=== PATIENT | male | born 1970 | race Caucasian/White ===

== ENCOUNTER 2017-08-13 17:33 | Inpatient (IN) | payer OTHER ==
[~2017-08-13] VITALS: Ht 182.9 cm; Wt 154.5 kg
[2017-08-13 17:34] VITALS: BP 179/78; PULSE 106; RESP 24; TEMP 97.7; O2SAT 98
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
[2017-08-13] MEDS ORDERED: LIDOCAINE 1%/EPINEPHrine 1:100,000 SOLN 20 ML VIAL INFIL ONE (18:00)
[2017-08-13] MEDS ORDERED: MORPHINE SULFATE 4 MG/ML INJ IV PUSH ONE (18:00)
[2017-08-13] MEDS ORDERED: LIDOCAINE HCL 2% 20 ML VIAL INFIL ONE (18:00)
[2017-08-13] MEDS ORDERED: ACETAMINOPHEN/HYDROcodone 325 MG/5 MG TAB PO PRN (18:15)
[2017-08-13] MEDS ORDERED: NURSING INFORMATION XX SCH (18:15)
[2017-08-13] MEDS ORDERED: CHLORHEXIDINE GLUCONATE 2 % 1 PACK (2 CLOTHS) TOP PRN (18:15)
[2017-08-13] MEDS ORDERED: NALOXONE HCL 0.4 MG/ML AMP IV PUSH PRN (18:15)
[2017-08-13] MEDS ORDERED: ONDANSETRON ODT 4 MG TAB PO PRN (19:00)
[2017-08-13 19:05] VITALS: BP 148/77; PULSE 110; RESP 18; O2SAT 95
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
--- NOTE | 2017-08-13 19:50 | PD ---
Physical Exam Time Seen by Provider: 19:49 Data Data Last Documented VS Vital Signs Date Time Temp Pulse Resp B/P (MAP) Pulse Ox O2 Delivery O2 Flow Rate FiO2 08/13/17 17:44 95 08/13/17 17:34 97.7 106 24 179/78 (111) Orders Orders Consult Anya Gts (08/13/17 ) Foot, Limited (2vws) (08/13/17 ) Ankle, Limited (Ap&Lat) (08/13/17 ) Knee, Ltd (1 Or 2vws) (08/13/17 ) Morphine Inj (Morphine Inj) (08/13/17 18:00) Lidocai-Epi 1%-1:100,000 Inj (Xylocaine- (08/13/17 18:00) Shoulder, Limited(2vws) (08/13/17 ) Lidocaine 2% Inj (Xylocaine 2% Inj) (08/13/17 18:00) Admit To Inpatient (08/13/17 ) Vital Signs (Adult) FABY.QSHIFT (08/13/17 18:06) Intake + Output FABY.Q8H (08/13/17 18:06) Resp Pulse Oximetry (08/13/17 ) Neuro Checks FABY.Q1H (08/13/17 18:06) Activity Bed Rest (08/13/17 18:06) Diet Npo (08/13/17 Dinner) Resp Incentive Spirometry (08/13/17 ) Instruction (08/13/17 18:06) Complete Blood Count With Diff (08/14/17 06:00) Basic Metabolic Panel (Bmp) (08/14/17 06:00) Chest, Single Ap (08/14/17 ) Sodium Chlor 0.9% 1000 Ml Inj (Ns 1000 M (08/13/17 20:00) Sodium Chloride 0.9% Flush (Ns Flush) (08/13/17 18:15) Acetamin-Hydrocod 325-5 Mg ([place] 5-325 (08/13/17 18:15) Acetamin-Hydrocod 325-5 Mg ([place] 5-325 (08/13/17 18:15) Pantoprazole Inj (Protonix Inj) (08/13/17 20:00) Bacitracin Oint (Baciguent Oint) (08/13/17 21:00) Consult Pt Eval & Treat (08/13/17 18:06) Docusate Sodium (Colace) (08/13/17 21:00) Consult Orthopedic (08/13/17 ) ^ Initiate Protocol (08/13/17 18:06) Instruction (08/13/17 18:06) Nursing Information ([facility] Nursing Inform (08/13/17 18:15) Chlorhexidine 2% Cloth (Chlorhexidine 2% (08/14/17 04:00) Chlorhexidine 2% Cloth (Chlorhexidine 2% (08/13/17 18:15) Mrsa Pcr Surveillance (08/13/17 18:06) ^ Monitor (08/13/17 18:) Notify Dr: Blood Pressure (08/13/17 18:) Notify Dr: Respiratory Rate (08/13/17 18:06) Notify Dr: Other (08/13/17 18:06) Naloxone Inj (Narcan Inj) (08/13/17 18:15) Morphine 1 Mg/Ml Almond Pan Finisher (Morphine 1 Mg/Ml P (08/13/17 19:00) Almond Pan Finisher Total Dose - Morphine (08/13/17 22:00) Inpatient Certification (08/13/17 ) Admit Order (Ed Use Only) (08/13/17 18:10) Ondansetron Odt (Zofran Odt) (08/13/17 19:00) MDM Medical Record Reviewed: Yes Supervised Visit with HAILEE: No Procedures Procedure Narrative LACERATION LOCATION: Upper lip LENGTH: 3 cm through and through NUMBER OF STITCHES/KEYON: 7 chromic gut, 5 Ethilon REPAIR: The area of the laceration was prepped with Betadine and sterilely draped. The laceration was infiltrated with 1% lidocaine without epinephrine. The wound was copiously irrigated and explored without evidence of foreign body , tendon injury or neurovascular injury. The wound was closed using 5-0 chromic gut and 5-0 Ethilon suture. This was a double layer repair. A sterile dressing was applied. The patient was advised to keep the dressing clean and dry. Patient tolerated the procedure well. LACERATION LOCATION: Left eyebrow LENGTH: 2 cm NUMBER OF STITCHES/KEYON: 5 sutures REPAIR: The area of the laceration was prepped with Betadine and sterilely draped. The laceration was infiltrated with 1% lidocaine without epinephrine. The wound was copiously irrigated and explored without evidence of foreign body , tendon injury or neurovascular injury. The wound was closed using 5-0 Ethilon suture. This was a single layer repair. A sterile dressing was applied. The patient was advised to keep the dressing clean and dry. Patient tolerated the procedure well. Diagnosis Primary Impression: Right femoral fracture Qualified Codes: S72.341A - Displaced spiral fracture of shaft of right femur , initial encounter for closed fracture Additional Impression: Lip laceration Qualified Codes: S01.511A - Laceration without foreign body of lip, initial encounter Scripts No Active Prescriptions or Reported Meds Condition: Stable Zulema Trevino Aug 13, 2017 19:50
[2017-08-13 20:00] VITALS: BP 166/83; PULSE 75; RESP 18; TEMP 98.5; O2SAT 98
[2017-08-13] MEDS: RESP: ALBUTEROL 2.5 MG/3 ML NEB (SCH) NEB ×2 (20:00→22:27)
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
[2017-08-13] MEDS: SODIUM CHLOR 0.9% 1000 ML INJ 1,000 ML IV SCH (20:55)
[2017-08-13] MEDS: MORPHINE SULFATE 30 MG/30 ML PCA IV SCH (20:56)
[2017-08-13] MEDS: PANTOPRAZOLE SODIUM 40 MG VIAL IVP SCH (20:57)
[2017-08-13] MEDS: ACETAMINOPHEN/HYDROcodone 325 MG/5 MG TAB PO PRN (20:57)
[2017-08-13] MEDS ORDERED: DOCUSATE SODIUM 100 MG CAP PO SCH (21:00)
[2017-08-13] MEDS: PCA - TOTAL MG MORPHINE DELIVERED PER SHIFT SCH (22:00)
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
[2017-08-13 22:27] VITALS: O2SAT 97
[2017-08-13] MEDS: BACITRACIN TOP OINT 15 GM TUBE TOP SCH (23:17)
[2017-08-14] VITALS (11 sets, daily range): BP systolic 119–169; BP diastolic 67–81; PULSE 79–102; RESP 18–22; TEMP 98–98.7; O2SAT 92–99
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
[2017-08-14] MEDS: RESP: ALBUTEROL 2.5 MG/3 ML NEB (SCH) NEB ×6 (01:08→23:47)
[2017-08-14] MEDS: SODIUM CHLOR 0.9% 1000 ML INJ 1,000 ML IV SCH ×2 (02:40→14:40)
[2017-08-14] MEDS ORDERED: CHLORHEXIDINE GLUCONATE 2 % 1 PACK (2 CLOTHS) TOPICAL PRN (03:30)
[2017-08-14] MEDS ORDERED: LACTATED RINGER'S 1000 ML IV PRN (03:30)
[2017-08-14] MEDS ORDERED: METOPROLOL TARTRATE 25 MG TAB PO PRN (03:30)
[2017-08-14] MEDS ORDERED: POVIDONE IODINE 5% (ANTISEPSIS KIT) 4 APPLICATIONS EACH NARE PRN (03:30)
[2017-08-14] MEDS ORDERED: SODIUM CHLORID 0.9% 500 ML IV PRN (03:30)
[2017-08-14] MEDS ORDERED: CHLORHEXIDINE GLUCONATE 2 % 1 PACK (2 CLOTHS) TOP SCH (04:00)
[2017-08-14] MEDS: MORPHINE SULFATE 30 MG/30 ML PCA IV SCH ×2 (04:41→14:39)
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
[2017-08-14] MEDS: PCA - TOTAL MG MORPHINE DELIVERED PER SHIFT SCH ×3 (06:00→22:00)
[2017-08-14 06:24] LABS: AUTOMATED NEUTROPHIL # 8.7 TH/MM3 (1.8-7.7); BASOPHIL % 0.2 % (0.0-2.0); EOSINOPHIL # 0.6 TH/MM3 (0-0.4); EOSINOPHIL % 4.7 % (0.0-4.0); HEMOGLOBIN 12.1 GM/DL (13.0-17.0); LYMPH % 13.3 % (9.0-44.0); LYMPHOCYTE # 1.6 TH/MM3 (1.0-4.8); MEAN CELL VOLUME 85.9 FL (80.0-100.0); MEAN CORPUSCULAR HGB CONC 32.6 % (32.0-36.0); MEAN PLATELET VOLUME 8.4 FL (7.0-11.0); MONO % 9.4 % (0.0-8.0); MONOCYTE # 1.1 TH/MM3 (0-0.9); NEUT % 72.4 % (16.0-70.0); PLATELET COUNT 218 TH/MM3 (150-450); RED BLOOD COUNT 4.31 MIL/MM3 (4.50-5.90); RED CELL DISTRIBUTION WIDTH 15.7 % (11.6-17.2)
[2017-08-14 07:29] LABS: BICARBONATE 28.9 MEQ/L (21.0-32.0); CALCIUM 8.1 MG/DL (8.5-10.1); CREATININE 0.95 MG/DL (0.60-1.30)
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
[2017-08-14] MEDS ORDERED: GENTAMICIN SULFATE 80 MG/2 ML VIAL ONE (08:02)
[2017-08-14] MEDS ORDERED: VANCOMYCIN HCL 1000 MG VIAL ONE (08:02)
[2017-08-14] MEDS ORDERED: ceFAZolin INJ 1,000 MG VIAL ONE (08:02)
[2017-08-14] MEDS ORDERED: SODIUM CHLOR 0.9% 250 ML INJ 250 ML ONE (08:03)
[2017-08-14] MEDS ORDERED: ACETAMINOPHEN 1000 MG/100 ML 100 ML IV ONE (08:07)
[2017-08-14] MEDS ORDERED: HYDROmorphone HCL PF 2 MG/ML VIAL ONE (08:08)
[2017-08-14] MEDS ORDERED: KETAMINE HCL 50 MG/5 ML SYRINGE ONE ×2 (08:30)
[2017-08-14] MEDS: BACITRACIN TOP OINT 15 GM TUBE TOP SCH ×2 (09:00→21:00)
--- NOTE | 2017-08-14 10:05 | PD.OP ---
cc: Neri Harris MD Operative Report Date of Surgery: Aug 14, 2017 Preoperative Diagnosis: Displaced right femur fracture, comminuted right calcaneus fracture Postoperative Diagnosis: Procedure: Right femur reduction and intramedullary fixation Anesthesia: General Surgeon: Neri Harris Freight Tallier(s): Arturo Cervantes PA-C The surgical procedure was assisted by my physician assistant signal maintainer. My P.A. presence was necessary throughout this case for the manipulation and positioning of the surgical extremity. My P.A. was assisting me throughout the duration of this procedure. The skill set of a physician assistant signal maintainer was medically necessary to complete this procedure. During the surgical case the surgical training specialist was working at the back table and the physician assistant signal maintainer was directly assisting me. Operation and Findings: Implants used: Synthes Plan of activity: Nonweightbearing right leg Patient was seen and evaluated preoperatively. The patient has significant leg pain from right femur shaft fracture and right calcaneus fracture. The risk and benefits of surgery were discussed in depth with the patient to include bleeding, infection, nonunion, malunion, need for hip replacement, painful hardware, as well as medical competitions including blood clots, stroke, heart attack, and . Informed consent was obtained. Operative site was marked. Patient was brought to the operating room and placed on [place] table. IV sedation was administered by anesthesiologist. Timeout procedure was performed. Hip and leg were prepped with alcohol followed by Hibiclens and draped in the usual sterile fashion. IV antibiotics were given prior to incision. Procedure began with reduction of fracture. Traction was applied. The leg was manipulated to achieve reduction. Excellent reduction was achieved. Fluoroscopy was used to confirm reduction. A two inch incision was made over the anterior knee. A medial arthrotomy was created. Guidepin was placed into the distal femur and advanced into the femoral canal. Fluoroscopy confirmed appropriate guidepin placement. A opening reamer was placed over the guidepin. A long ball tipped guide pin was now placed down the femoral canal into the center of the proximal femur. The nail length was now measured. Fluoroscopy confirmed appropriate guidepin placement. Flexible reamers were now passed over the guidepin to ream the intramedullary canal. The Synthes nail was attached to the insertion handle. Nail was now placed over the guidepin into the femoral canal. Fluoroscopy confirmed appropriate nail placement. A small percutaneous incisions were made over the lateral thigh. Cannulas were placed through the insertion handle down to the femur. Using the insertion handle as a guide the distal interlocking screw holes were predrilled and screw lengths were measured. Appropriate length screws was now placed. Next, using perfect cowlitz technique one proximal interlocking screw was placed. Screw holes were predrilled and screw lengths were measured. Final fluoroscopy revealed well aligned fracture with well-placed hardware. Incision was closed with 0 Vicryl, 3-0 Vicryl and claire. Sterile dressings were applied. Patient was placed into a well molded well-padded splint for his right calcaneus fracture. Patient was awakened and transferred to recovery room. Neri Harris MD Aug 14, 2017 10:05
[2017-08-14] MEDS ORDERED: ERGOCALCIFEROL (VIT D2) 50,000 UNIT CAP PO ONE (10:15)
[2017-08-14] MEDS ORDERED: ONDANSETRON ODT 4 MG TAB SL PRN (10:15)
[2017-08-14] MEDS ORDERED: diphenhydrAMINE HCL 25 MG CAP PO PRN (10:15)
[2017-08-14] MEDS ORDERED: SENNOSIDES 8.6 MG TAB PO PRN (10:30)
[2017-08-14] MEDS ORDERED: LACTULOSE SYRUP 20 GM/30 ML CUP PO PRN (10:30)
[2017-08-14] MEDS ORDERED: BISACODYL 10 MG SUPP RECTAL PRN (10:30)
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
[2017-08-14] MEDS ORDERED: NALOXONE HCL 0.4 MG/ML AMP ONE (10:52)
[2017-08-14] MEDS ORDERED: SUGAMMADEX SODIUM 200 MG/2 ML VIAL IV PUSH ONE (10:52)
--- NOTE | 2017-08-14 10:59 | RADRPT ---
EXAM DATE: 08/14/2017 10:51 AM EDT AGE/SEX: 46 years / Male INDICATIONS: ORIF RT FEMUR CLINICAL DATA: This is the patient's initial encounter. Patient reports that signs and symptoms have been present for 1 day and indicates a pain score of Nonresponsive. MEDICAL/SURGICAL HISTORY: None. None. COMPARISON: No prior exams available for comparison. FINDINGS: Spot intraoperative fluoroscopic views of the right femur demonstrate retrograde intramedullary kiki p lacement across the mid femoral fracture with 2 distal interlocking screws and one proximal interlock ing screw. CONCLUSION: Postsurgical changes. Electronically signed by: Al Whitman MD 08/14/2017 10:58 AM EDT
[2017-08-14] MEDS ORDERED: DO NOT ADM ANY ANTICOAGULANT DRUGS PRN (11:01)
[2017-08-14] MEDS ORDERED: MIDAZOLAM HCL 2 MG/2 ML VIAL ONE (11:10)
[2017-08-14] MEDS ORDERED: GLYCOPYRROLATE 1 MG/5 ML SYRINGE IV PUSH ONE (12:00)
[2017-08-14] MEDS ORDERED: DEXAMETHASONE SOD PHOS 4 MG/ML VIAL IV ONE (12:00)
[2017-08-14] MEDS ORDERED: PROPOFOL 200 MG/20 ML AMP IV ONE (12:00)
[2017-08-14] MEDS ORDERED: ROCURONIUM INJ 50 MG/5 ML SYRINGE IV PUSH ONE (12:00)
[2017-08-14] MEDS ORDERED: ONDANSETRON HCL 4 MG/2 ML VIAL IV PUSH ONE (12:00)
[2017-08-14] MEDS ORDERED: PHENYLEPH/NS 1000 MCG/10 ML SYR IV ONE (12:00)
[2017-08-14] MEDS ORDERED: SUCCINYLCHOLINE CHLORIDE 100 MG/5 ML SYRINGE IV PUSH ONE (12:00)
[2017-08-14] MEDS ORDERED: LACTATED RINGER'S 1000 ML INJ 1,000 ML IV ONE (12:00)
[2017-08-14] MEDS ORDERED: LIDOCAINE HCL 1% PF 5 ML SYRINGE OTHER ONE (12:00)
[2017-08-14] MEDS ORDERED: SODIUM CHLOR 0.9% 250 ML INJ 250 ML IV ONE (12:00)
[2017-08-14] MEDS ORDERED: NEOSTIGMINE 5 MG/5 ML SYRINGE IV PUSH ONE (12:00)
[2017-08-14] MEDS ORDERED: PERI PO (14:21)
[2017-08-14] MEDS: CALCIUM/VITAMIN D 250 MG/125 U TAB PO SCH ×2 (14:21→17:16)
[2017-08-14] MEDS: MAGNESIUM HYDROXIDE SUSP 30 ML CUP PO SCH ×2 (14:21→23:00)
[2017-08-14] MEDS ORDERED: MAGN30S PO (14:21)
[2017-08-14] MEDS ORDERED: ENALAPRILAT 1.25 MG/ML VIAL IV PUSH PRN (14:30)
[2017-08-14] MEDS: ceFAZolin 2 GM PREMIX 50 ML IV SCH ×2 (17:15→21:55)
[2017-08-14] MEDS: PANTOPRAZOLE SODIUM 40 MG VIAL IVP SCH (22:09)
[2017-08-14] MEDS: DOCUSATE SODIUM 50 MG/SENNA 8.6 MG TAB PO SCH (22:09)
[2017-08-15] VITALS (8 sets, daily range): BP systolic 117–153; BP diastolic 60–81; PULSE 80–111; RESP 16–22; TEMP 97.7–99.3; O2SAT 94–96
[2017-08-15] MEDS: RESP: ALBUTEROL 2.5 MG/3 ML NEB (SCH) NEB ×6 (02:57→23:47)
[2017-08-15] MEDS: ceFAZolin 2 GM PREMIX 50 ML IV SCH (03:00)
[2017-08-15 04:43] LABS: BASOPHIL # 0.1 TH/MM3 (0-0.2); BASOPHIL % 0.5 % (0.0-2.0); EOSINOPHIL # 0.3 TH/MM3 (0-0.4); EOSINOPHIL % 1.6 % (0.0-4.0); HEMATOCRIT 32.9 % (39.0-51.0); HEMOGLOBIN 10.5 GM/DL (13.0-17.0); LYMPH % 10.5 % (9.0-44.0); LYMPHOCYTE # 1.7 TH/MM3 (1.0-4.8); MEAN CORPUSCULAR HEMOGLOBIN 27.8 PG (27.0-34.0); MEAN CORPUSCULAR HGB CONC 31.9 % (32.0-36.0); MEAN PLATELET VOLUME 9.2 FL (7.0-11.0); MONOCYTE # 1.5 TH/MM3 (0-0.9); NEUT % 78.4 % (16.0-70.0); PLATELET COUNT 114 TH/MM3 (150-450); RED BLOOD COUNT 3.78 MIL/MM3 (4.50-5.90); RED CELL DISTRIBUTION WIDTH 15.7 % (11.6-17.2); WHITE BLOOD COUNT 16.6 TH/MM3 (4.0-11.0)
[2017-08-15 05:01] LABS: BICARBONATE 26.6 MEQ/L (21.0-32.0); CREATININE 0.94 MG/DL (0.60-1.30)
[2017-08-15] MEDS: PCA - TOTAL MG MORPHINE DELIVERED PER SHIFT SCH (06:00)
--- NOTE | 2017-08-15 06:40 | PD.ORT.PN ---
Subjective Subjective Remarks POd 1 s/p IMN right femur s/p rigiht calcaneus fx reports pain in leg and pain in left shoulder. Objective Vitals Vital Signs Date Time Temp Pulse Resp B/P (MAP) Pulse Ox O2 Delivery O2 Flow Rate FiO2 08/15/17 04:00 98.6 111 22 142/71 (94) 95 08/15/17 00:00 99.3 104 20 117/73 (88) 94 08/14/17 23:46 94 Nasal Cannula 3.00 08/14/17 22:27 98 Nasal Cannula 3.00 08/14/17 22:00 17 08/14/17 20:00 98.7 102 22 119/81 (94) 98 08/14/17 16:35 92 Nasal Cannula 4.00 08/14/17 16:00 98.0 87 20 147/67 (93) 95 08/14/17 13:00 98.0 79 20 169/79 (109) 92 08/14/17 12:15 98.1 101 20 169/86 (113) 94 Nasal Cannula 4 08/14/17 12:00 104 20 181/84 (116) 93 Nasal Cannula 4 08/14/17 11:45 103 20 178/86 (116) 96 Nasal Cannula 4 08/14/17 11:30 100 20 165/88 (113) 96 Nasal Cannula 4 08/14/17 11:15 99 20 159/94 (115) 100 40 08/14/17 11:00 99 35 08/14/17 11:00 105 20 166/88 (114) 99 40 08/14/17 10:57 98.3 109 20 170/91 (117) 95 45 08/14/17 08:00 98.6 101 18 136/67 (90) 95 I/O 08/14/17 08/14/17 08/14/17 08/15/17 08/15/17 08/15/17 07:00 15:00 23:00 07:00 15:00 23:00 Intake Total 706 ml 1300 ml 2 ml 720 ml Output Total 1400 ml 75 ml 1500 ml 1050 ml Balance -694 ml 1225 ml -1498 ml -330 ml Intake Oral 720 ml IV Total 706 ml 2 ml Other 1300 ml Output Urine Total 1400 ml 1500 ml 1050 ml Estimated Blood Loss 75 ml Bladder Scan Volume Amount 999 ml # Bowel Movements 0 Result Diagram: 6/10/18 0345 08/15/17 034 Objective Remarks RLE: dressings clean and dry. splint intact. NVI LUE: minimal motion due to soreness. nontender to touch. nvi Assessment & Plan Assessment and Plan 1) Right Femoral Shaft Fx s/p IMN - POD 1 2) Right Calcaneal Fx - nonop -NWB -maintain splint at all times -elevate -DVT prophylaxis-- lovenox 40mg BID. will DC with Xarelto 20mg daily -CM for wheelchair training -likely will need DC to rehab -f/u with [facility] or PA in 2 weeks Arturo Cervantes/Security Officer Supervisor CARMELO Aug 15, 2017 06:40
[2017-08-15] MEDS ORDERED: HYDR-3583 PO (06:41)
[2017-08-15] MEDS ORDERED: XARE20TA PO (06:42)
[2017-08-15] MEDS ORDERED: RESP: ALBUTEROL 0.63 MG/3 ML NEB (SCH) NEB ONE (08:00)
[2017-08-15] MEDS ORDERED: WALKER WHEELS/F1 MIS (08:05)
[2017-08-15] MEDS ORDERED: WHEEMIS3 (08:05)
[2017-08-15] MEDS: CHOLECALCIFEROL (VIT D3) 5000 UNIT CAP PO SCH (08:22)
[2017-08-15] MEDS: DOCUSATE SODIUM 50 MG/SENNA 8.6 MG TAB PO SCH ×2 (08:22→21:57)
[2017-08-15] MEDS: CALCIUM/VITAMIN D 250 MG/125 U TAB PO SCH ×3 (08:22→17:06)
[2017-08-15] MEDS: BACITRACIN TOP OINT 15 GM TUBE TOP SCH ×2 (08:22→22:02)
[2017-08-15] MEDS: MORPHINE SULFATE 30 MG/30 ML PCA IV SCH (08:28)
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
[2017-08-15] MEDS: MAGNESIUM HYDROXIDE SUSP 30 ML CUP PO SCH ×2 (11:36→21:57)
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
[2017-08-15 13:42] LABS: BICARBONATE 29.5 MEQ/L (21.0-32.0); CREATININE 0.84 MG/DL (0.60-1.30)
[2017-08-15] MEDS: ACETAMINOPHEN/HYDROcodone 325 MG/5 MG TAB PO PRN ×3 (14:18→21:58)
[2017-08-15] MEDS: fentaNYL 50 MCG/HR PATCH T-DERMAL SCH (14:18)
[2017-08-15] MEDS: PANTOPRAZOLE SOD 40 MG DELAYED RELEASE TAB PO SCH (21:57)
[2017-08-16] VITALS (7 sets, daily range): BP systolic 128–150; BP diastolic 58–74; PULSE 90–103; RESP 18–20; TEMP 97.5–98.4; O2SAT 92–99
[2017-08-16] MEDS: RESP: ALBUTEROL 2.5 MG/3 ML NEB (SCH) NEB ×6 (02:48→23:52)
[2017-08-16] MEDS: ACETAMINOPHEN/HYDROcodone 325 MG/5 MG TAB PO PRN ×2 (02:57→08:00)
--- NOTE | 2017-08-16 06:48 | PD.ORT.PN ---
Subjective Subjective Remarks POd 2 s/p IMN right femur s/p rigiht calcaneus fx reports pain in leg and pain in left shoulder. Objective Vitals Vital Signs Date Time Temp Pulse Resp B/P (MAP) Pulse Ox O2 Delivery O2 Flow Rate FiO2 08/15/17 23:45 97.9 94 18 125/60 (81) 96 08/15/17 22:00 Nasal Cannula 2.00 08/15/17 20:25 Nasal Cannula 2.00 08/15/17 20:20 97.7 80 17 153/71 (98) 94 08/15/17 20:10 96 Nasal Cannula 3.00 08/15/17 17:59 98.0 102 18 146/80 (102) 96 08/15/17 12:00 98.0 95 20 135/77 (96) 94 08/15/17 09:00 94 Nasal Cannula 3.00 08/15/17 08:36 Room Air 08/15/17 08:33 18 08/15/17 08:28 18 I/O 08/15/17 08/15/17 08/15/17 08/16/17 08/16/17 08/16/17 07:00 15:00 23:00 07:00 15:00 23:00 Intake Total 720 ml 700 ml 960 ml Output Total 1050 ml 1800 ml Balance -330 ml 700 ml -840 ml Intake Oral 720 ml 700 ml 960 ml Output Urine Total 1050 ml 1800 ml # Bowel Movements 0 0 Result Diagram: 08/15/17 0345 08/15/17 1250 Objective Remarks RLE: dressings clean and dry. splint intact. NVI LUE: minimal motion due to soreness. nontender to touch. nvi Assessment & Plan Assessment and Plan 1) Right Femoral Shaft Fx s/p IMN - POD 2 2) Right Calcaneal Fx - nonop -NWB -maintain splint at all times -elevate -DVT prophylaxis-- lovenox 40mg BID. will DC with Xarelto 20mg daily -CM for wheelchair training -likely will need DC to rehab -f/u with [facility] or [facility]O in 2 weeks Arturo Cervantes/Clinical Informatics Spec CARMELO Aug 16, 2017 06:48
[2017-08-16] MEDS: DOCUSATE SODIUM 50 MG/SENNA 8.6 MG TAB PO SCH ×2 (07:59→20:42)
[2017-08-16] MEDS: CALCIUM/VITAMIN D 250 MG/125 U TAB PO SCH ×3 (07:59→17:03)
[2017-08-16] MEDS: CHOLECALCIFEROL (VIT D3) 5000 UNIT CAP PO SCH (08:00)
[2017-08-16] MEDS: BACITRACIN TOP OINT 15 GM TUBE TOP SCH ×2 (08:00→20:46)
[2017-08-16] MEDS: MORPHINE SULFATE 4 MG/ML INJ IV PUSH PRN ×2 (09:05→20:45)
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
[2017-08-16] MEDS: MAGNESIUM HYDROXIDE SUSP 30 ML CUP PO SCH ×2 (10:53→23:18)
[2017-08-16] MEDS: ACETAMINOPHEN 1000 MG/100 ML 100 ML IV SCH ×3 (12:00→23:17)
[2017-08-16] MEDS: KETOROLAC TROMETHAMINE 30 MG/ML (IVP) VIAL IV PUSH SCH ×3 (12:02→23:17)
[2017-08-16] MEDS: GABAPENTIN 300 MG CAP PO SCH ×2 (12:03→17:04)
[2017-08-16] MEDS: PANTOPRAZOLE SOD 40 MG DELAYED RELEASE TAB PO SCH (20:43)
[2017-08-17] VITALS (8 sets, daily range): BP systolic 125–152; BP diastolic 60–74; PULSE 79–105; RESP 16–19; TEMP 97.3–98.9; O2SAT 92–100
[2017-08-17] MEDS: RESP: ALBUTEROL 2.5 MG/3 ML NEB (SCH) NEB ×5 (03:56→20:26)
[2017-08-17 04:58] LABS: AUTOMATED NEUTROPHIL # 8.4 TH/MM3 (1.8-7.7); BASOPHIL # 0.1 TH/MM3 (0-0.2); BASOPHIL % 0.5 % (0.0-2.0); EOSINOPHIL # 1.1 TH/MM3 (0-0.4); EOSINOPHIL % 8.9 % (0.0-4.0); HEMATOCRIT 30.1 % (39.0-51.0); HEMOGLOBIN 9.9 GM/DL (13.0-17.0); LYMPH % 15.1 % (9.0-44.0); LYMPHOCYTE # 1.9 TH/MM3 (1.0-4.8); MEAN CELL VOLUME 85.7 FL (80.0-100.0); MEAN CORPUSCULAR HEMOGLOBIN 28.1 PG (27.0-34.0); MEAN CORPUSCULAR HGB CONC 32.8 % (32.0-36.0); MEAN PLATELET VOLUME 8.4 FL (7.0-11.0); MONO % 9.3 % (0.0-8.0); MONOCYTE # 1.2 TH/MM3 (0-0.9); NEUT % 66.2 % (16.0-70.0); PLATELET COUNT 218 TH/MM3 (150-450); RED BLOOD COUNT 3.52 MIL/MM3 (4.50-5.90); RED CELL DISTRIBUTION WIDTH 15.6 % (11.6-17.2); WHITE BLOOD COUNT 12.7 TH/MM3 (4.0-11.0)
[2017-08-17 05:19] LABS: BICARBONATE 34.2 MEQ/L (21.0-32.0); CALCIUM 8.6 MG/DL (8.5-10.1); CREATININE 0.93 MG/DL (0.60-1.30)
[2017-08-17] MEDS: KETOROLAC TROMETHAMINE 30 MG/ML (IVP) VIAL IV PUSH SCH ×4 (05:35→23:57)
[2017-08-17] MEDS: ACETAMINOPHEN 1000 MG/100 ML 100 ML IV SCH (05:35)
--- NOTE | 2017-08-17 06:32 | PD.ORT.PN ---
Subjective Subjective Remarks POd 3 s/p IMN right femur s/p rigiht calcaneus fx reports pain in leg and pain in left shoulder. Objective Vitals Vital Signs Date Time Temp Pulse Resp B/P (MAP) Pulse Ox O2 Delivery O2 Flow Rate FiO2 08/17/17 04:00 98.7 104 19 152/74 (100) 94 08/17/17 00:01 98.3 79 18 131/60 (83) 94 08/16/17 21:40 95 Nasal Cannula 2.00 08/16/17 20:56 2.00 08/16/17 20:00 98.4 103 19 128/58 (81) 94 08/16/17 16:00 97.9 92 18 150/72 (98) 97 08/16/17 12:00 98.2 90 19 144/74 (97) 96 08/16/17 11:57 99 Nasal Cannula 2.00 08/16/17 10:05 92 Nasal Cannula 21 08/16/17 08:07 97.5 97 20 139/66 (90) 97 I/O 08/16/17 08/16/17 08/16/17 08/17/17 08/17/17 08/17/17 07:00 15:00 23:00 07:00 15:00 23:00 Intake Total 960 ml 1560 ml 650 ml Output Total 1800 ml 600 ml 600 ml Balance -840 ml -600 ml 960 ml 650 ml Intake Oral 960 ml 1560 ml 650 ml Output Urine Total 1800 ml 600 ml 600 ml # Voids 2 3 # Bowel Movements 0 1 Result Diagram: 08/17/17 0411 08/17/17 0411 Objective Remarks RLE: dressings clean and dry. splint intact. NVI LUE: minimal motion due to soreness. nontender to touch. nvi Assessment & Plan Assessment and Plan 1) Right Femoral Shaft Fx s/p IMN - POD 3 2) Right Calcaneal Fx - nonop -NWB -maintain splint at all times -elevate -DVT prophylaxis-- lovenox 40mg BID. will DC with Xarelto 20mg daily -CM for wheelchair training -likely will need DC to rehab -f/u with [facility] or [facility]O in 2 weeks Arturo Cervantes/Relay Operator CARMELO Aug 17, 2017 06:32
[2017-08-17] MEDS ORDERED: CALCTAB19 PO (06:33)
[2017-08-17] MEDS ORDERED: VITA500012 PO (06:33)
[2017-08-17] MEDS ORDERED: VITA2000 PO (06:33)
[2017-08-17] MEDS: CALCIUM/VITAMIN D 250 MG/125 U TAB PO SCH ×3 (08:28→17:27)
[2017-08-17] MEDS: GABAPENTIN 300 MG CAP PO SCH ×3 (08:28→17:27)
[2017-08-17] MEDS: CHOLECALCIFEROL (VIT D3) 5000 UNIT CAP PO SCH (08:28)
[2017-08-17] MEDS: DOCUSATE SODIUM 50 MG/SENNA 8.6 MG TAB PO SCH ×2 (08:28→21:27)
[2017-08-17] MEDS: BACITRACIN TOP OINT 15 GM TUBE TOP SCH ×2 (08:42→21:28)
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
[2017-08-17] MEDS: MAGNESIUM HYDROXIDE SUSP 30 ML CUP PO SCH ×2 (09:41→21:27)
[2017-08-17] MEDS ORDERED: PANT40TA3 PO (12:28)
[2017-08-17] MEDS ORDERED: OXYC-392 PO (12:28)
[2017-08-17] MEDS ORDERED: OXYC-395 PO (12:28)
[2017-08-17] MEDS ORDERED: ENOX40P SQ (12:28)
[2017-08-17] MEDS ORDERED: FENT50T T-DERMAL (12:28)
[2017-08-17] MEDS ORDERED: NEUR300C PO (12:28)
[2017-08-17] MEDS: PANTOPRAZOLE SOD 40 MG DELAYED RELEASE TAB PO SCH (21:27)
[2017-08-18 00:01] VITALS: BP 139/71; PULSE 108; RESP 18; TEMP 99.5; O2SAT 93
[2017-08-18] MEDS: SODIUM CHLORIDE 0.9% FLUSH 10 ML FLUSH IV FLUSH PRN ×2 (00:19→06:45)
[2017-08-18] MEDS: MORPHINE SULFATE 4 MG/ML INJ IV PUSH PRN (00:19)
[2017-08-18] MEDS: KETOROLAC TROMETHAMINE 30 MG/ML (IVP) VIAL IV PUSH SCH ×4 (05:29→18:00)
[2017-08-18 08:00] VITALS: BP 160/70; PULSE 102; RESP 19; TEMP 97.8; O2SAT 94
[2017-08-18] MEDS: CALCIUM/VITAMIN D 250 MG/125 U TAB PO SCH ×3 (08:10→18:07)
[2017-08-18] MEDS: CHOLECALCIFEROL (VIT D3) 5000 UNIT CAP PO SCH (08:10)
[2017-08-18] MEDS: DOCUSATE SODIUM 50 MG/SENNA 8.6 MG TAB PO SCH ×2 (08:10→21:00)
[2017-08-18] MEDS: GABAPENTIN 300 MG CAP PO SCH ×3 (08:10→18:07)
[2017-08-18] MEDS: MAGNESIUM HYDROXIDE SUSP 30 ML CUP PO SCH ×2 (08:11→23:00)
[2017-08-18] MEDS: BACITRACIN TOP OINT 15 GM TUBE TOP SCH ×2 (08:11→21:59)
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
[2017-08-18 12:00] VITALS: BP 143/65; PULSE 78; RESP 19; TEMP 97.8; O2SAT 94
[2017-08-18] MEDS: fentaNYL 50 MCG/HR PATCH T-DERMAL SCH (12:35)
[2017-08-18] MEDS ORDERED: REMOVE OLD DURAGESIC (FENTANYL) PATCH T-DERMAL SCH (14:00)
[2017-08-18 16:00] VITALS: BP 139/67; PULSE 109; RESP 19; TEMP 97.7; O2SAT 99
[2017-08-18 17:33] VITALS: O2SAT 94
[2017-08-18 20:00] VITALS: BP 174/71; PULSE 100; RESP 19; TEMP 98.2; O2SAT 95
[2017-08-18] MEDS: PANTOPRAZOLE SOD 40 MG DELAYED RELEASE TAB PO SCH (21:59)
[2017-08-19 00:01] VITALS: BP 150/71; PULSE 105; RESP 18; TEMP 98; O2SAT 93
[2017-08-19 04:00] VITALS: BP 126/61; PULSE 101; RESP 19; TEMP 99.1; O2SAT 95
[2017-08-19 08:00] VITALS: BP 149/67; PULSE 83; RESP 19; TEMP 97.6; O2SAT 97
[2017-08-19] MEDS: CHOLECALCIFEROL (VIT D3) 5000 UNIT CAP PO SCH (08:50)
[2017-08-19] MEDS: CALCIUM/VITAMIN D 250 MG/125 U TAB PO SCH ×3 (08:50→17:08)
[2017-08-19] MEDS: GABAPENTIN 300 MG CAP PO SCH ×3 (08:51→17:08)
[2017-08-19] MEDS: DOCUSATE SODIUM 50 MG/SENNA 8.6 MG TAB PO SCH (08:51)
[2017-08-19] MEDS: BACITRACIN TOP OINT 15 GM TUBE TOP SCH (08:52)
[2017-08-19] MEDS: MAGNESIUM HYDROXIDE SUSP 30 ML CUP PO SCH (11:51)
[2017-08-19 12:00] VITALS: BP 134/73; PULSE 105; RESP 25; TEMP 97.3; O2SAT 95
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
[2017-08-19 16:00] VITALS: BP 157/90; PULSE 113; RESP 25; TEMP 98.3; O2SAT 97
[2017-08-19 17:24] VITALS: O2SAT 97
[2017-08-23] MEDS ORDERED: ENOXAPARIN SODIUM 40 MG/0.4 ML SYRINGE SQ SCH (11:00)
== END 2017-08-19 17:27 | DRG 481 ==
LOC: NEPE 17:33 → NEDA 18:12 → N06B 20:04
PROVIDERS: ADMIT Surgery; ATTEND Surgery
PROC: 0CQ0XZZ Repair Upper Lip, External Approach (ICD-10-PCS; 2017-08-13)
PROC: 0HQ1XZZ Repair Face Skin, External Approach (ICD-10-PCS; 2017-08-13)
PROC: 0QSB36Z Reposition Right Lower Femur with Intramedullary Internal Fixation Device, Percutaneous Approach (ICD-10-PCS; principal; 2017-08-14 08:48)
DX: S72.341A Displaced spiral fracture of shaft of right femur, initial encounter for closed fracture (principal); Z68.42 Body mass index [BMI] 45.0-49.9, adult; S01.112A Laceration without foreign body of left eyelid and periocular area, initial encounter; J44.9 Chronic obstructive pulmonary disease, unspecified; S01.511A Laceration without foreign body of lip, initial encounter; S92.001A Unspecified fracture of right calcaneus, initial encounter for closed fracture; S40.012A Contusion of left shoulder, initial encounter; E66.01 Morbid (severe) obesity due to excess calories; V29.9XXA Motorcycle rider (driver) (passenger) injured in unspecified traffic accident, initial encounter; G47.30 Sleep apnea, unspecified; R40.2410 Glasgow coma scale score 13-15, unspecified time; R60.9 Edema, unspecified
CPT/HCPCS: 12011; 12052; 71045; 73030; 73552; 73560; 73600; 73620; 73700; 76000; 80048; 82306; 82948; 83605; 85025; 87641; 94002; 94150; 94640; 94664; 96374; C1713; C9113; J0131; J0330; J0690; J1100; J1170; J1580; J1885; J2250; J2270; J2310; J2370; J2405; J2710; J3010; J3370; J7030; J7050; J7120; J7613